=== PATIENT | male | born 1970 | race African-American/Black ===

== ENCOUNTER 2018-01-29 11:20 | Emergency (ER) | payer SELFPAY ==
[~2018-01-29] VITALS: Ht 172.7 cm; Wt 149.2 kg
[2018-01-29 11:31] VITALS: BP 155/69
--- NOTE | 2018-01-29 12:06 | PHYS DOC ---
Past History Past Medical History: No Pertinent History Past Surgical History: No Surgical History Smoking: Cigarettes, Less than 1pk/day Alcohol Use: Rarely Drug Use: Marijuana Adult General Chief Complaint Chief Complaint: back pain [facility] HPI Patient is a 47 year old male who presents with complaining of low back pain for several months that getting force for the last 1 week. Patient states he had constant bilateral lower back pain with radiation to bilateral abdomen is a constant pain that getting worse with movement and improved with having bowel movements. Patient states he had cough and congestion for the last several days and his back pain getting worse with coughing for the last 5 or 6 days. Patient states his cough improved with taking [id number] medication but his back pain did not get better. Patient complaining of increase of urination and defecation without diarrhea. Patient denies urinary and bowel incontinence, focal neuro deficit, abdominal pain, fever and chills, nausea and vomiting. Patient did not seek medical attention for his chronic pain. Review of Systems Review of Systems Constitutional: Denies fever or chills [] Eyes: Denies change in visual acuity, redness, or eye pain [] HENT: Denies nasal congestion or sore throat [] Respiratory: Denies cough or shortness of breath [] Cardiovascular: No additional information not addressed in HPI [] GI: Denies abdominal pain, nausea, vomiting, bloody stools or diarrhea [] : Denies dysuria or hematuria [] Musculoskeletal: Reports back pain Integument: Denies rash or skin lesions [] Neurologic: Denies headache, focal weakness or sensory changes [] Endocrine: Denies polyuria or polydipsia [] All other systems were reviewed and found to be within normal limits, except as documented in this note. Allergies Allergies Allergies Coded Allergies Type Severity Reaction Last Updated Verified No Known Drug Allergies 07/03/13 No Physical Exam Physical Exam Constitutional: Well developed, well nourished, mild distress, non-toxic appearance, morbidly obese. [] HENT: Normocephalic, atraumatic Eyes: PERRLA, EOMI, conjunctiva normal, no discharge. [] Neck: Normal range of motion, no tenderness, supple, no stridor. [] Cardiovascular:Heart rate regular rhythm, no murmur [] Lungs & Thorax: Bilateral breath sounds clear to auscultation [] Abdomen: Bowel sounds normal, soft, no tenderness, no masses, no pulsatile masses. [] Skin: Warm, dry, no erythema, no rash. [] Back: No midline tenderness, no CVA tenderness, painful range of motion of the lumbar spine Extremities: No tenderness, no cyanosis, no clubbing, ROM intact, no edema. [] Neurologic: Alert and oriented X 3, normal motor function, normal sensory function, no focal deficits noted. [] Psychologic: Affect normal, judgement normal, mood normal. [] Current Patient Data Vital Signs Vital Signs Date Time Temp Pulse Resp B/P (MAP) Pulse Ox O2 Delivery O2 Flow Rate FiO2 01/29/18 11:31 98.2 84 16 94 Room Air EKG EKG [] Radiology/Procedures Radiology/Procedures [address] [address] IMAGING REPORT Signed PATIENT: SEBASTIAN CHUA JR ACCOUNT: [id number] : 1970 LOCATION: ER AGE: 47 SEX: M EXAM STATUS: REG ER ORD. PHYSICIAN: ULICES RAGSDALE MD REASON: low back pain PROCEDURE: CT LUMBAR SPINE WO CONTRAST Examination: CT lumbar spine without contrast HISTORY: History of low back pain for 6 to 12 months COMPARISON: None available Technique: Axial CT images of the lumbar spine was performed without contrast. Coronal and sagittal reformats are performed Exposure: One or more of the following individualized dose reduction techniques were utilized for this examination: 1. Automated exposure control 2. Adjustment of the mA and/or kV according to patient size 3. Use of iterative reconstruction technique FINDINGS: The lumbar vertebral body heights are maintained. The bilateral facets are well aligned. Mild intervertebral disc height loss identified in the lower thoracic spine and in the lumbar spine. There is diffuse disc bulge identified at L2-L3 vertebral levels with likely ligamentum flavum hypertrophy causing moderate to severe spinal canal stenosis best visualized on series 4 image 58. Mild disc bulge identified at L1-L2, L3-L4, L4-L5 and L5-S1 vertebral levels causing mild to moderate spinal canal stenosis. Diffuse decreased attenuation noted throughout the liver likely hepatic steatosis. Mild aortic atherosclerosis. IMPRESSION: 1. Multilevel degenerative changes in the lumbar spine most at L2-L3 vertebral level with moderate to severe spinal canal stenosis at this level. Follow-up nonemergent MRI lumbar spine may be useful. Electronically signed by: Isaiah Blum MD (01/29/2018 12:29 PM) [facility] DICTATED AND SIGNED BY: ISAIAH BLUM MD DATE: 01/29/18 1223 CC: ULICES RAGSDALE MD; PCP,VALENTIN ~ Course & Med Decision Making Course & Med Decision Making Pertinent Labs and Imaging studies reviewed. (See chart for details) Evaluation of patient in ER showed 47-year-old male patient with complaining of chronic back pain that getting worse after recent cough. Patient had unremarkable physical exam except for morbid obesity. CT of lumbar spine showed severe spinal stenosis and DJD. Patient had blood sugar of 117 and UA was unremarkable. Patient instructed to follow up with a primary care physician regarding chronic back pain. Dragon Disclaimer Dragon Disclaimer This electronic medical record was generated, in whole or in part, using a voice recognition dictation system. Departure Departure: Impression: Primary Impression: Spinal stenosis of lumbar region Additional Impressions: Lumbago Morbid obesity Tobacco abuse counseling Tobacco abuse Disposition: HOME, SELF-CARE (@13 O2) Condition: IMPROVED Referrals: PCP,VALENTIN (PCP) Patient Instructions: Back Pain, Adult, Smoking Cessation, Tips For Success, Spinal Stenosis Additional Instructions: Apply ice on the affected area Follow-up with your primary care physician in 3-5 days Return to ER if not getting better Scripts Prednisone (PREDNISONE) 50 Mg Tablet 1 TAB PO DAILY for Inflammation, #5 TAB Prov: ULICES RAGSDALE MD 01/29/18 Naproxen (NAPROSYN) 500 Mg Tablet 500 MG PO BID for pain, #20 TAB Prov: ULICES RAGSDALE MD 01/29/18 Cyclobenzaprine Hcl (CYCLOBENZAPRINE HCL) 10 Mg Tablet 1 TAB PO TID for pain, #30 TAB Prov: ULICES RAGSDALE MD 01/29/18 Problem Qualifiers ULICES RAGSDALE MD Jan 29, 2018 12:06
[2018-01-29 12:11] LABS: BILIRUBIN,URINE NEG (NEG); CLARITY,URINE CLEAR; COLOR,URINE YELLOW; GLUCOSE,URINE NEG (NEG)
[2018-01-29 12:12] LABS: NITRITE,URINE NEG (NEG); UROBILINOGEN,URINE 0.2 mg/dL (0.2 mg/dL)
[2018-01-29] MEDS ORDERED: KETOROLAC 60 MG/2 ML VIAL. IM ONE (12:25)
--- NOTE | 2018-01-29 12:33 | RAD ---
Examination: CT lumbar spine without contrast HISTORY: History of low back pain for 6 to 12 months COMPARISON: None available Technique: Axial CT images of the lumbar spine was performed without contrast. Coronal and sagittal reformats are performed Exposure: One or more of the following individualized dose reduction techniques were utilized for this examination: 1. Automated exposure control 2. Adjustment of the mA and/or kV according to patient size 3. Use of iterative reconstruction technique FINDINGS: The lumbar vertebral body heights are maintained. The bilateral facets are well aligned. Mild intervertebral disc height loss identified in the lower thoracic spine and in the lumbar spine. There is diffuse disc bulge identified at L2-L3 vertebral levels with likely ligamentum flavum hypertrophy causing moderate to severe spinal canal stenosis best visualized on series 4 image 58. Mild disc bulge identified at L1-L2, L3-L4, L4-L5 and L5-S1 vertebral levels causing mild to moderate spinal canal stenosis. Diffuse decreased attenuation noted throughout the liver likely hepatic steatosis. Mild aortic atherosclerosis. IMPRESSION: 1. Multilevel degenerative changes in the lumbar spine most at L2-L3 vertebral level with moderate to severe spinal canal stenosis at this level. Follow-up nonemergent MRI lumbar spine may be useful. Electronically signed by: Isaiah Blum MD (01/29/2018 12:29 PM) [facility]
[2018-01-29] MEDS ORDERED: NAPR-683 PO (13:05)
[2018-01-29] MEDS ORDERED: CYCL-331 PO (13:05)
[2018-01-29] MEDS ORDERED: PRED50TA PO (13:05)
== END 2018-01-29 13:18 | disposition home or self-care (01) ==
LOC: ER 11:20
DX: M48.061 Spinal stenosis, lumbar region without neurogenic claudication (principal); M54.5 Low back pain; R35.0 Frequency of micturition; R05 Cough; R09.81 Nasal congestion; E66.01 Morbid (severe) obesity due to excess calories; F17.210 Nicotine dependence, cigarettes, uncomplicated; Z71.6 Tobacco abuse counseling; Z68.43 Body mass index [BMI] 50.0-59.9, adult
CPT/HCPCS: 72131; 81003; 82947; 96372; 99284; J1885